=== PATIENT | male | born 1955 | race Caucasian/White ===

== ENCOUNTER 2019-06-07 22:46 | Emergency (ER) | payer BC ==
[2019-06-08] MEDS ORDERED: LIDOCAINE 1% INJ-PF (10 MG/ML) 30 ML SDV INJ ONE (01:18)
--- NOTE | 2019-06-08 01:40 | ER Document Report ---
ED General - General Chief Complaint: Laceration Stated Complaint: LEFT HAND INJURY Time Seen by Provider: 06/08/19 00:31 Primary Care Provider: MCKINLEY LEE MD [Primary Care Provider] - Follow up as needed Notes: Pleasant 64-year-old [id number] male with no significant past medical problems presents to the emergency department with 2 lacerations to his left hand. He was reaching behind the TV and try to cut a zip tie with a folding knife and it slipped and sliced his left thumb and the dorsal aspect of his left middle finger. There was some mild bleeding. Patient's tetanus status is unknown. Patient performed first-aid before coming in and had the wounds wrapped. Patient is able to flex and extend all of his digits in his left hand. TRAVEL OUTSIDE OF THE [place] IN LAST 30 DAYS: No - Related Data Allergies/Adverse Reactions: codeine [Codeine] Allergy (Verified 08/12/12 12:43) Nausea, Vomit Home Medications: atorvastatin. finisteride Past Medical History - Social History Smoking Status: Never Smoker Family History: Reviewed & Not Pertinent Patient has suicidal ideation: No Patient has homicidal ideation: No - Past Medical History Cardiac Medical History: Denies: Hx Coronary Artery Disease, Hx Heart Attack, Hx Hypertension Pulmonary Medical History: Denies: Hx Asthma, Hx Bronchitis, Hx COPD, Hx Pneumonia Neurological Medical History: Denies: Hx Cerebrovascular Accident, Hx Seizures Musculoskeletal Medical History: Reports Hx Arthritis - Fingers Psychiatric Medical History: Reports: Hx Depression - Immunizations Hx Diphtheria, Pertussis, Tetanus Vaccination: Yes Hx Pneumococcal Vaccination: 02/16/04 Review of Systems - Review of Systems Constitutional: No symptoms reported EENT: No symptoms reported Cardiovascular: No symptoms reported Respiratory: No symptoms reported Gastrointestinal: No symptoms reported Genitourinary: No symptoms reported Male Genitourinary: No symptoms reported Musculoskeletal: See HPI Skin: See HPI Hematologic/Lymphatic: No symptoms reported Neurological/Psychological: No symptoms reported Physical Exam - Vital signs Vitals: Temp Pulse Resp BP Pulse Ox 98.8 F 81 20 163/84 H 99 06/07/19 22:50 06/07/19 22:50 06/07/19 22:50 06/07/19 22:50 06/07/19 22:50 - Notes Notes: PHYSICAL EXAMINATION: Reviewed vital signs and charting by RN GENERAL: Alert, interacts well. No acute distress. HEAD: Normocephalic, atraumatic. EYES: Pupils equal and round. Extraocular movements intact. ENT: Oral mucosa moist, tongue midline. NECK: Full range of motion. Trachea midline. EXTREMITIES: Moves all 4 extremities spontaneously. No edema, No cyanosis. Flexor and extensor tendons intact on the left thumb and left middle finger PSYCH: Normal affect, normal mood. SKIN: Warm, dry, normal turgor. Linear laceration on the medial aspect of the DIP of the left thumb approximately 2 cm, 3 cm laceration on the dorsal aspect of the left middle finger that extends around to the lateral aspect of the finger Course - Re-evaluation Re-evalutation: 06/08/19 02:42 Primary closure performed using 5-0 Ethilon. Patient was anesthetized with lidocaine 1% without epinephrine, patient tolerated procedure well. Tetanus booster was given. Return precautions given. Patient stable for discharge. - Vital Signs Vital signs: Temp Pulse Resp BP Pulse Ox 98.8 F 81 20 163/84 H 99 06/07/19 22:53 06/07/19 22:50 06/07/19 22:50 06/07/19 22:50 06/07/19 22:50 Discharge - Discharge Clinical Impression: Laceration Condition: Good Disposition: HOME, SELF-CARE Additional Instructions: Please return to your primary doctor, the ED, or an urgent care in 7 days for suture removal. Return immediately if you develop spreading redness around the wound, pus from the wound, worsening pain, or a fever of >101. Keep the area clean and dry. Wash gently with soap and water twice daily and cover with antibiotic ointment. Referrals: MCKINLEY LEE MD [Primary Care Provider] - Follow up as needed
[2019-06-08] MEDS ORDERED: DIPH/PERTUSS(ACELL)/TETANUS VAC/PF 0.5 ML SYR (>=10YO) IM ONE (02:39)
[2019-06-08 03:03] VITALS: BP 144/73
== END 2019-06-08 03:03 | disposition home or self-care (01) ==
LOC: ER 22:46
PROC: 0HQGXZZ Repair Left Hand Skin, External Approach (ICD-10-PCS; principal; 2019-06-07)
DX: S61.412A Laceration without foreign body of left hand, initial encounter (principal); Z88.8 Allergy status to other drugs, medicaments and biological substances; W26.0XXA Contact with knife, initial encounter
CPT/HCPCS: 90471; 90715; 99282

== ENCOUNTER → 2019-09-14 | Outpatient (CLI) | payer BC ==
[2019-09-14 09:30] LABS: ABSOLUTE EOSINOPHILS # (AUTO) 0.2 10^3/uL (0.0-0.6); ABSOLUTE LYMPHOCYTES (AUTO) 1.2 10^3/uL (0.5-4.7); ABSOLUTE MONOCYTES (AUTO) 0.3 10^3/uL (0.1-1.4); ABSOLUTE NEUT (AUTO) 3.5 10^3/uL (1.7-8.2); BASOPHILS % (AUTO) 0.9 % (0-2); EOSINOPHILS % (AUTO) 3.2 % (0-6); HEMATOCRIT 41.1 % (37.9-51.0); HEMOGLOBIN 13.8 g/dL (13.5-17.0); LYMPHOCYTES % (AUTO) 22.3 % (13-45); MEAN CORPUSCULAR HEMOGLOBIN 30.9 pg (27.0-33.4); MEAN CORPUSCULAR HGB CONC 33.7 g/dL (32.0-36.0); MEAN CORPUSCULAR VOLUME 92 fl (80-97); MONOCYTES % (AUTO) 6.5 % (3-13); PLATELET COUNT 318 10^3/uL (150-450); RED BLOOD COUNT 4.48 10^6/uL (4.35-5.55); RED CELL DISTRIBUTION WIDTH 14.2 % (11.5-14.0); SEGMENTED NEUTROPHILS % (AUTO) 67.1 % (42-78); TOTAL CELLS COUNTED % (AUTO) 100 %; WHITE BLOOD COUNT 5.2 10^3/uL (4.0-10.5)
[2019-09-14 09:45] LABS: ALBUMIN 4.4 g/dL (3.5-5.0); ALKALINE PHOSPHATASE 49 U/L (38-126); ANION GAP 6 (5-19); ASPARTATE AMINO TRANSFERASE 27 U/L (17-59); BILIRUBIN,TOTAL 0.4 mg/dL (0.2-1.3); BLOOD UREA NITROGEN 15 mg/dL (7-20); CALCIUM 9.7 mg/dL (8.4-10.2); CARBON DIOXIDE 30 mmol/L (22-30); CHLORIDE 103 mmol/L (98-107); CHOLESTEROL 188.01 mg/dL (0-200); GLUCOSE 106 mg/dL (75-110); TOTAL PROTEIN 7.1 g/dL (6.3-8.2); TRIGLYCERIDES 82 mg/dL (<150)
[2019-09-14 10:23] LABS: DIRECT LDL 120 mg/dL (<100)
== END ==
LOC: OD 08:47
PROVIDERS: ATTEND Internal Medicine
DX: E78.5 Hyperlipidemia, unspecified (principal); I10 Essential (primary) hypertension; R35.1 Nocturia; R53.83 Other fatigue
CPT/HCPCS: 36415; 80053; 80061; 83735; 84153; 84443; 85025; 86900; 86901